=== PATIENT | male | born 1985 | race Caucasian/White ===

== ENCOUNTER 2020-01-09 09:42 | Emergency (ER) | payer OTHER ==
[~2020-01-09] VITALS: Ht 182.9 cm; Wt 107.0 kg
[2020-01-09 09:50] VITALS: Ht 182.9 cm; Wt 107.0 kg
[2020-01-09 11:37] VITALS: BP 133/88
== END 2020-01-09 13:06 | disposition home or self-care (01) ==
LOC: ED 09:42
DX: S62.102A Fracture of unspecified carpal bone, left wrist, initial encounter for closed fracture (principal); S83.91XA Sprain of unspecified site of right knee, initial encounter; S13.9XXA Sprain of joints and ligaments of unspecified parts of neck, initial encounter; Z95.0 Presence of cardiac pacemaker; Z98.890 Other specified postprocedural states; V23.0XXA Motorcycle driver injured in collision with car, pick-up truck or van in nontraffic accident, initial encounter; Y93.55 Activity, bike riding; Y92.413 State road as the place of occurrence of the external cause; Y99.8 Other external cause status

== ENCOUNTER 2020-02-13 16:30 | Emergency (ER) | payer OTHER ==
[~2020-02-13] VITALS: Ht 195.6 cm; Wt 106.6 kg
[2020-02-13 16:57] VITALS: Ht 195.6 cm; Wt 106.6 kg
[2020-02-13 18:07] LABS: BASOPHIL % 0.3 % (0-2); PLATELET COUNT 229 x10^3mcL (130-400); RED CELL DISTRIBUTION WIDTH 12.7 % (11.5-14.5)
[2020-02-13 18:21] LABS: CALCIUM 9.5 mg/dL (8.5-10.1); CARBON DIOXIDE 28.6 mmol/L (21-32); CHLORIDE SERUM 103 mmol/L (98-107); CREATININE SERUM 0.9 mg/dL (0.7-1.3); GFR1 > 60 mL/min; GLUCOSE SERUM 93 mg/dL (74-106); POTASSIUM SERUM 3.8 mmol/L (3.5-5.1); SODIUM SERUM 139 mmol/L (136-145)
[2020-02-13 18:26] LABS: ALKALINE PHOSPHATASE 101 U/L (46-116); ALT/SGPT 63 U/L (16-63); AST/SGOT 23 U/L (15-37); BILIRUBIN TOTAL 0.6 mg/dL (0.20-1.00); TOTAL PROTEIN, SERUM 7.6 g/dL (6.4-8.2)
[2020-02-13 19:54] VITALS: BP 131/91
== END 2020-02-13 19:54 | disposition home or self-care (01) ==
LOC: ED 16:30
PROVIDERS: Emergency Medicine
DX: J06.9 Acute upper respiratory infection, unspecified (principal); I10 Essential (primary) hypertension; J45.909 Unspecified asthma, uncomplicated
CPT/HCPCS: 83880; 87804; J1885; J3535; Q0092; U0002